=== PATIENT | male | born 1940 | race Caucasian/White ===

== ENCOUNTER 2019-03-31 14:41 | Emergency (ER) | payer MEDICARE, OTHER ==
[~2019-03-31] VITALS: Ht 177.8 cm; Wt 72.6 kg
[~2019-03-31 14:41] MED LIST: ASPIRIN EC81 MG PO; CETIRIZINE HCL10 MG PO; CITALOPRAM HBR10 MG PO; COZAAR25 MG PO; CRESTOR10 MG PO; DONEPEZIL HCL5 M1 PO; ELIQUIS5 MG PO; FAMOTIDINE20 MG PO; FLONASE ALLERG9.9 ML NAS; HYDROCODON-ACE1 EA10 PO; LISINOPRIL10 MG PO; LISINOPRIL5 MG PO; NASACORT10.8 ML NAS; VITAMIN D32000 UNI1 PO; VITAMIN D5000 UNIT PO; XARELTO20 MG PO; ZOFRAN ODT4 MG SL
[2019-03-31] MEDS ORDERED: NITROGLYCERIN0.4 MG SL (15:00)
--- NOTE | 2019-04-01 23:19 | EKG ---
[facility] [address] [facility] [place] [address] Signed Normal sinus rhythm Normal ECG No previous ECGs available Confirmed by NO GARCIA DO ([id number]) on 04/01/2019 11:19:05 PM Electronically Signed By: NO GARCIA DO 04/01/19 2319 PATIENT NAME: MYNOR VEGA Electrocardiogram DATE OF : 38 PHYSICIAN: NO GARCIA DO REPORT #: [id number] REPORT IS CONFIDENTIAL AND NOT TO BE RELEASED WITHOUT AUTHORIZATION
== END 2019-03-31 18:36 | disposition home or self-care (01) ==
LOC: ED 14:41
DX: R07.9 Chest pain, unspecified (principal); I10 Essential (primary) hypertension; I48.91 Unspecified atrial fibrillation; I25.2 Old myocardial infarction; Z88.5 Allergy status to narcotic agent; Z88.1 Allergy status to other antibiotic agents; Z88.8 Allergy status to other drugs, medicaments and biological substances; Z79.899 Other long term (current) drug therapy; Z79.82 Long term (current) use of aspirin
CPT/HCPCS: 36415; 80053; 84484; 85025; 93005; 93010; 99285-25

== ENCOUNTER 2019-12-31 04:11 | Emergency (ER) | payer MEDICARE, OTHER ==
[~2019-12-31] VITALS: Ht 177.8 cm; Wt 72.6 kg
[~2019-12-31 04:11] MED LIST changes: +NITROGLYCERIN0.4 MG SL
[2019-12-31] MEDS ORDERED: ELIQUIS5 MG PO (04:18)
[2019-12-31] MEDS ORDERED: NITROGLYCERIN0.4 MG SL (06:53)
--- NOTE | 2019-12-31 23:43 | EKG ---
[facility] [address] [facility] [place], [place] [address] Signed Sinus rhythm with marked sinus arrhythmia Otherwise normal ECG When compared with ECG of 31-MAR-2019 14:49, No significant change was found Confirmed by LAY ZUNIGA MD ([id number]) on 12/31/2019 11:43:39 PM Electronically Signed By: LAY ZUNIGA MD 12/31/19 2343 PATIENT NAME: MYNOR VEGA Electrocardiogram DATE OF : 38 PHYSICIAN: LAY ZUNIGA MD REPORT #: [id number] REPORT IS CONFIDENTIAL AND NOT TO BE RELEASED WITHOUT AUTHORIZATION
== END 2019-12-31 08:12 | disposition home or self-care (01) ==
LOC: ED 04:11
DX: R07.9 Chest pain, unspecified (principal); I10 Essential (primary) hypertension; I48.91 Unspecified atrial fibrillation; I25.2 Old myocardial infarction; Z88.0 Allergy status to penicillin; Z88.8 Allergy status to other drugs, medicaments and biological substances; Z88.5 Allergy status to narcotic agent; Z79.899 Other long term (current) drug therapy; Z79.82 Long term (current) use of aspirin; Z79.01 Long term (current) use of anticoagulants
CPT/HCPCS: 71045; 80053; 83735; 84484; 85025; 93005; 93010; 99285-25

== ENCOUNTER 2020-09-30 03:10 | Emergency (ER) | payer MEDICARE, OTHER ==
[~2020-09-30] VITALS: Ht 180.3 cm; Wt 72.6 kg
== END 2020-09-30 03:45 | disposition home or self-care (01) ==
LOC: ED 03:10
DX: S51.812A Laceration without foreign body of left forearm, initial encounter (principal); W22.8XXA Striking against or struck by other objects, initial encounter; I10 Essential (primary) hypertension; I48.91 Unspecified atrial fibrillation; I25.2 Old myocardial infarction; Z88.0 Allergy status to penicillin; Z88.8 Allergy status to other drugs, medicaments and biological substances; Z88.5 Allergy status to narcotic agent; Z79.899 Other long term (current) drug therapy
CPT/HCPCS: 90471; 90715; 99282-25

== ENCOUNTER 2020-12-02 23:03 | Emergency (ER) | payer MEDICARE, OTHER ==
[~2020-12-02] VITALS: Ht 180.3 cm; Wt 68.0 kg
[2020-12-02] MEDS ORDERED: SOTALOL80 MG PO (23:43)
[2020-12-02] MEDS ORDERED: ZYRTEC10 MG PO (23:44)
[2020-12-02] MEDS ORDERED: FAMOTIDINE20 MG PO (23:45)
--- NOTE | 2020-12-03 20:45 | EKG ---
[facility] [address] [facility] [place] [address] Signed AV dual-paced rhythm with occasional premature ventricular complexes Abnormal ECG When compared with ECG of 02-DEC-2020 23:09, (Unconfirmed) Electronic ventricular pacemaker has replaced Electronic atrial pacemaker Confirmed by MEDINA JOYCE MD ([id number]) on 12/03/2020 8:45:41 PM Electronically Signed By: MEDINA JOYCE MD 12/03/205 PATIENT NAME: MYNOR VEGA Electrocardiogram DATE OF : 38 PHYSICIAN: MEDINA JOYCE MD REPORT #: [id number] REPORT IS CONFIDENTIAL AND NOT TO BE RELEASED WITHOUT AUTHORIZATION
--- NOTE | 2020-12-03 20:45 | EKG ---
[facility] [address] [facility] [place] [address] Signed Atrial-paced rhythm with occasional premature ventricular complexes Abnormal ECG When compared with ECG of 31-DEC-2019 04:16, Electronic atrial pacemaker has replaced Sinus rhythm ST elevation now present in Lateral leads Confirmed by MEDINA JOYCE MD ([id number]) on 12/03/2020 8:45:29 PM Electronically Signed By: MEDINA JOYCE MD 12/03/205 PATIENT NAME: MYNOR VEGA Electrocardiogram DATE OF : 38 PHYSICIAN: MEDINA JOYCE MD REPORT #: [id number] REPORT IS CONFIDENTIAL AND NOT TO BE RELEASED WITHOUT AUTHORIZATION
== END 2020-12-03 04:09 | disposition home or self-care (01) ==
LOC: ED 23:03
DX: R07.2 Precordial pain (principal); I10 Essential (primary) hypertension; I48.91 Unspecified atrial fibrillation; I25.2 Old myocardial infarction; Z87.891 Personal history of nicotine dependence; Z88.8 Allergy status to other drugs, medicaments and biological substances; Z88.0 Allergy status to penicillin; Z88.1 Allergy status to other antibiotic agents; Z79.899 Other long term (current) drug therapy
CPT/HCPCS: 71045; 80053; 83735; 84484; 85025; 93005; 93010; 99285-25

== ENCOUNTER 2021-06-16 14:15 | Emergency (ER) | payer MEDICARE, OTHER ==
[~2021-06-16] VITALS: Ht 180.3 cm; Wt 61.2 kg
[~2021-06-16 14:15] MED LIST changes: +ADULT ASPIRIN R81 MG PO; +FAMOTIDINE40 MG PO; +OXYCODONE HCL5 MG PO; +SOTALOL80 MG PO; +ZYRTEC10 MG PO
== END 2021-06-16 16:50 | disposition home or self-care (01) ==
LOC: ED 14:15
DX: Z45.018 Encounter for adjustment and management of other part of cardiac pacemaker (principal); I10 Essential (primary) hypertension; I48.91 Unspecified atrial fibrillation; I25.2 Old myocardial infarction; Z88.0 Allergy status to penicillin; Z88.8 Allergy status to other drugs, medicaments and biological substances; Z88.1 Allergy status to other antibiotic agents; Z88.5 Allergy status to narcotic agent; Z79.899 Other long term (current) drug therapy; Z79.82 Long term (current) use of aspirin
CPT/HCPCS: 99283